=== PATIENT | male | born 1955 | race Hispanic/Latino ===

== ENCOUNTER → 2017-08-18 | Outpatient (CLI) | payer OTHER ==
[~2017-08-18] MED LIST: AMITRIPTYLINE H25 MG PO; AMLODIPINE BESY10 MG PO; ASPIR 8181 MG PO; ATORVASTATIN CA20 MG PO; FUROSEMIDE40 MG PO; GABAPENTIN100 MG PO; HYDRALAZINE HCL10 MG PO; LANTUS 3ML100 UNITS/ SC; LEVEMIR100 UNIT/1 SC; METOPROLOL SUCC50 MG PO; NIFEDIPINE ER30 M1 PO; OMEPRAZOLE40 MG PO; SERTRALINE HCL100 MG PO; TAMSULOSIN HCL0.4 MG PO; ZOFRAN ODT4 MG PO
[2017-08-22 08:11] LABS: HEMATOCRIT 28.6 % (38.2-49.6); HEMOGLOBIN 9.3 g/dL (14.0-18.0)
== END ==
LOC: NPA 09:00
PROVIDERS: ATTEND Internal Medicine
DX: Z02.89 Encounter for other administrative examinations (principal)
CPT/HCPCS: 36415; 85014; 85018

== ENCOUNTER → 2017-08-25 | Outpatient (CLI) | payer OTHER ==
[2017-08-25 17:09] LABS: BASOPHILS % 0.5 % (0.0-1.0); HEMATOCRIT 23.9 % (38.2-49.6); HEMOGLOBIN 7.9 g/dL (14.0-18.0); LYMPHOCYTES # (AUTO) 1.1 (1.0-3.2); LYMPHOCYTES % 26.4 % (18.0-39.1); MEAN CORPUSCULAR HEMOGLOBIN 29.5 pg (28-32); MEAN CORPUSCULAR HGB CONC 33.1 g/dL (31-35); MEAN CORPUSCULAR VOLUME 89.2 fL (81-99); MONOCYTES # (AUTO) 0.4 (0.2-0.8); MONOCYTES % 8.8 % (4.4-11.3); NEUTROPHILS # (AUTO) 2.5 (2.1-6.9); PLATELET COUNT 165 x10e3/uL (140-360); RED BLOOD COUNT 2.68 x10e6/uL (4.3-5.7); RED CELL DISTRIBUTION WIDTH 13.8 % (11.7-14.4)
== END ==
LOC: NPA 13:30
PROVIDERS: ATTEND Internal Medicine
DX: Z02.89 Encounter for other administrative examinations (principal)
CPT/HCPCS: 36415; 85025

== ENCOUNTER 2017-11-12 07:10 | Emergency (ER) | payer MEDICARE ==
[~2017-11-12] VITALS: Ht 170.2 cm; Wt 68.0 kg
--- OUTSIDE RECORDS SUMMARY | 2017-11-12 07:12 | XMS REPORT | Clinical Summary ---
Author Author [facility] Organization [facility] Address Unknown Phone Unavailable Care Team Providers Care Founder / Ceo Name Role Phone Zaid Lopes MD PCP Allergies Active Allergy Reactions Severity Noted Date Comments Sulfamethoxazole-Trimetho Hives 02/23/2016 prim Current Medications Prescription Sig. Disp. Refills Start End Date Status Date insulin GLARGINE (LANTUS) Inject 35 Units under the Active 100 unit/mL injection skin 2 (two) times a day. gabapentin (NEURONTIN) Take 400 mg by mouth 3 Active 400 MG capsule (three) times a day. tamsulosin (FLOMAX) 0.4 Take 0.4 mg by mouth Active mg capsule,extended daily. release 24hr metoprolol tartrate Take 100 mg by mouth 2 Active (LOPRESSOR) 100 MG tablet (two) times a day. 1 tablet in the morning and 1/2 tablet at night hydrALAZINE (APRESOLINE) Take 50 mg by mouth every Active 50 MG tablet 8 (eight) hours. amitriptyline (ELAVIL) 25 Take 25 mg by mouth Active MG tablet nightly. sertraline (ZOLOFT) 100 Take 100 mg by mouth Active MG tablet daily. furosemide (LASIX) 40 MG Take 40 mg by mouth 2 Active tablet (two) times a day. Active Problems Problem Noted Date Type 2 diabetes mellitus 02/23/2016 Social History Tobacco Use Types Packs/Day Years Used Date Never Smoker Smokeless Tobacco: Never Used Sex Assigned at Date Recorded Not on file Last Filed Vital Signs Not on file Plan of Treatment Health Maintenance Due Date Last Done Comments FOOT EXAM 1967 OPHTHALMOLOGY EXAM 1965 URINE MICROALBUMIN 1967 COLONOSCOPY 2007 INFLUENZA VACCINE 03/15/2017 ZOSTER VACCINE 2017 Results Not on fileafter 11/11/2016 Insurance Payer Benefit Subscriber ID Type Phone Address Plan / Group WELLCARE WELLCARE xxxxxxxx HMO MCR OPTUM TRANSPLANT MEDICARE OPTUM TXP xxxxxxxx Transplant MEDICARE MCR Home: [address] [place] [id number] BHAVESH,RAMO Transplant Self 1955 Home: [address] [facility] [place] [address]
[2017-11-12] MEDS ORDERED: ASPIRIN 81 MG CHEW TAB PO ONE (07:30)
[2017-11-12 07:34] LABS: BASOPHILS % 0.6 % (0.0-1.0); EOSINOPHILS % 0.7 % (0.0-6.0); HEMATOCRIT 35.9 % (38.2-49.6); HEMOGLOBIN 11.6 g/dL (14.0-18.0); LYMPHOCYTES # (AUTO) 0.9 (1.0-3.2); LYMPHOCYTES % 17.4 % (18.0-39.1); MEAN CORPUSCULAR HEMOGLOBIN 29.1 pg (28-32); MEAN CORPUSCULAR HGB CONC 32.3 g/dL (31-35); MEAN CORPUSCULAR VOLUME 90.2 fL (81-99); MONOCYTES # (AUTO) 0.3 (0.2-0.8); MONOCYTES % 4.7 % (4.4-11.3); NEUTROPHILS # (AUTO) 4.1 (2.1-6.9); NEUTROPHILS % 76.4 % (38.7-80.0); PLATELET COUNT 134 x10e3/uL (140-360); RED BLOOD COUNT 3.98 x10e6/uL (4.3-5.7); RED CELL DISTRIBUTION WIDTH 14.6 % (11.7-14.4)
[2017-11-12] MEDS ORDERED: TERAZOSIN HCL5 MG PO (07:41)
[2017-11-12] MEDS ORDERED: DIOVAN160 MG PO (07:41)
[2017-11-12] MEDS ORDERED: HYDRALAZINE HCL 20 MG/ML VIAL IV ONE ×2 (07:45→09:30)
[2017-11-12 07:47] LABS: INR 1.06
[2017-11-12 07:48] LABS: PARTIAL THROMBOPLASTIN TIME 32.5 seconds (23.8-35.5)
[2017-11-12 07:55] LABS: ALBUMIN 3.7 g/dL (3.5-5.0); ALBUMIN/GLOBULIN RATIO 1.3 (0.8-2.0); ANION GAP 17.4 mmol/L (8-16); CALCIUM 8.5 mg/dL (8.4-10.2); CREATININE, SERUM 5.79 mg/dL (0.72-1.25); POTASSIUM 4.4 mmol/L (3.5-5.1)
[2017-11-12 07:57] LABS: CREATINE KINASE MB 1.7 ng/mL (0-5.0)
[2017-11-12] MEDS ORDERED: NITROGLYCERIN 2% OINT 1 GM PKT TOP ONE (08:00)
--- NOTE | 2017-11-12 08:30 | Diagnostic Imaging Report ---
EXAMINATION: CHEST SINGLE (PORTABLE) INDICATION: \S\CP \S\Y COMPARISON: None FINDINGS: AP view TUBES and LINES: None. LUNGS: Lungs are well inflated. Lungs are clear. There is no evidence of pneumonia or pulmonary edema. PLEURA: No pleural effusion or pneumothorax. HEART AND MEDIASTINUM: The cardiomediastinal silhouette is unremarkable. BONES AND SOFT TISSUES: No acute osseous lesion. Vascular stent projects over the right subclavian/proximal brachial region. UPPER ABDOMEN: No free air under the diaphragm. IMPRESSION: No acute thoracic abnormality. Signed by: DR. Akhil Medina MD on 11/12/2017 8:26 AM
[2017-11-12] MEDS ORDERED: CLONIDINE HCL 0.2 MG TAB ONE (09:32)
[2017-11-12] MEDS ORDERED: CLONIDINE HCL 0.2 MG TAB PO ONE (10:00)
== END 2017-11-12 11:03 | disposition home or self-care (01) ==
LOC: ER 07:10
DX: R07.89 Other chest pain (principal); I12.0 Hypertensive chronic kidney disease with stage 5 chronic kidney disease or end stage renal disease; N18.6 End stage renal disease; Z99.2 Dependence on renal dialysis
CPT/HCPCS: 36415; 71045; 80053; 82550; 82553; 82948; 84484; 85025; 85610; 85730; 93005 ×2; 99284; J0360

== ENCOUNTER 2017-11-30 06:44 | Inpatient (IN) | payer MEDICARE ==
[2017-11-30] VITALS (7 sets, daily range): BP systolic 156–229; BP diastolic 75–102
[~2017-11-30] VITALS: Ht 157.5 cm; Wt 64.1 kg
[~2017-11-30 06:44] MED LIST changes: +DIOVAN160 MG PO; +TERAZOSIN HCL5 MG PO
--- OUTSIDE RECORDS SUMMARY | 2017-11-30 06:47 | XMS REPORT | Clinical Summary ---
Author Author [facility] Organization [facility] Address Unknown Phone Unavailable Care Team Providers Care Move Coordinator Name Role Phone Zaid Lopes MD PCP [...] EXAM 1967 URINE MICROALBUMIN 1967 COLONOSCOPY 2007 ZOSTER VACCINE 2017 INFLUENZA VACCINE 03/15/2018 Results Not on fileafter 11/29/2016 Insurance Payer Benefit Subscriber ID Type Phone Address Plan / Group WELLCARE WELLCARE xxxxxxxx HMO MCR OPTUM TRANSPLANT MEDICARE OPTUM TXP xxxxxxxx Transplant MEDICARE MCR Home: [address] [place] [phone] BHAVESH,RAMO Transplant Self 1955 Home: [address] [place] [address]
--- OUTSIDE RECORDS SUMMARY | 2017-11-30 06:47 | XMS REPORT | Continuity of Care Document ---
Author Author [facility] Organization [facility] Address [address] [place] [address] Phone Unavailable Care Team Providers Care Blankmaker Name Role Phone HAWA EVANS MD PCP Insurance Providers Guarantor Ramo Young Jr Address [address] [place] [address] Email PTDECLINED Payer Wellcare Medicare Advantage Policy Number [id number] Subscriber's Name Ramo Young Jr Relationship 18 Self / Same As Patient Advance Directives Directive Response Recorded Date/Time Does the patient have an advance directive? No 11/12/17 8:18am If yes, is advance directive on file with [facility]? No 11/12/17 8:18am If not on file with [facility] will patient provide a copy? No 11/12/17 8:18am Do you have a Directive to Physician? No 11/12/17 7:22am Do you have a Medical Power of Travel Accommodations Rater? No 11/12/17 7:22am Do you have an out of hospital Do Not Resuscitate Order? No 11/12/17 7:22am Do you have any special needs we should be aware of? No 11/12/17 7:22am Do you have a support person here with you today? Yes 11/12/17 7:22am Did patient receive Notice of Privacy Practices? Yes 11/12/17 7:22am Did patient receive patient rights and responsibilities? Yes 11/12/17 7:22am Problems No problem information available. Medications Current Home Medications Medication Dose Units Route Directions Days Qty Instructions Start Date Amitriptyline Hcl 25 Mg Tablet 25 Mg Oral Bedtime 30 Tab Amlodipine Besylate 10 Mg Tablet 10 Mg Oral Daily 30 Tab Aspirin (Aspir 81) 81 Mg Tablet.dr 81 Mg Oral Daily Atorvastatin Calcium 20 Mg Tablet 20 Mg Oral Bedtime 30 Tab Furosemide 40 Mg Tablet 40 Mg Oral Every 12 Hours 30 Tab Hydralazine Hcl 10 Mg Tablet 50 Mg Oral Twice A Day 30 Tab Insulin Detemir (Levemir) 100 Unit/1 Ml Vial 5 Unit Subcutaneously Before Meals Insulin Glargine (Lantus 3ML Pen) 100 Units/1 Ml Inj 32 Subcutaneously Every 12 Hours Metoprolol Succinate 50 Mg Tab.er.24h 100 Mg Oral Every 12 Hours Nifedipine (Nifedipine Er) 30 Mg Tab.er.24 90 Mg Oral Daily Ondansetron (Zofran Odt) 4 Mg Tab.rapdis 4 Mg Oral Every 6 Hours for Nausea Sertraline Hcl 100 Mg Tablet 100 Mg Oral Daily Tamsulosin Hcl 0.4 Mg Cap.er.24h 0.4 Mg Oral Daily Terazosin Hcl 5 Mg Capsule 5 Mg Oral Daily 30 Cap Valsartan (Diovan) 160 Mg Tab 320 Mg Oral Daily 60 Tab Past Home Medications Medication Directions Ordered Status Gabapentin 100 Mg Capsule, 100 Mg Oral Three Times A Day Discontinued Omeprazole 40 Mg Capsule.dr, 40 Mg Oral Daily Discontinued Social History No social history information available. Hospital Discharge Instructions No hospital discharge instruction information available. Plan of Care Discharge Date 11/12/17 11:03am Disposition HOME, SELF-CARE Condition at Discharge Improved Forms Provided Work/School Excuse Prescriptions See Medication Section Additional Instructions/Education GO TO DIALYSIS TODAY FOLLOW UP WITH PCP NEEDED Functional Status No functional status information available. Allergies, Adverse Reactions, Alerts Allergen Type Severity Reaction Status Last Updated Sulfamethoxazole Allergy Intermediate GENERALIZED BLOTCHING Active Trimethoprim Allergy Intermediate GENERALIZED BLOTCHING Active 11/12/17 Immunizations No immunization information available. Vital Signs Acute Vital Signs Vital Response Date/Time Pulse Pulse Rate (adult) 75 bpm (60 - 90) 02/10/2017 3:31pm Respiratory Rate 18 bpm (12 - 24) 02/10/2017 3:31pm Blood Pressure 201/98 mm Hg 02/10/2017 3:31pm Height 5 ft 7 in 11/12/2017 7:10am Weight 150 lb 11/12/2017 7:10am Body Mass Index 23.5 kg/m^2 11/12/2017 7:10am Results Laboratory Results Test Name Result Units Flags Reference Collection Date/Time Result Date/ Time Comments Urine Color YELLOW YELLOW 02/10/2017 12:45pm 02/10/2017 1:23pm Urine Clarity SL CLOUDY H CLEAR 02/10/2017 12:45pm 02/10/2017 1:23pm Urine Specific [place] 1.010 1.010-1.025 02/10/2017 12:45pm 2016 1:23pm Urine pH 7 5 - 7 02/10/2017 12:45pm 02/10/2017 1:23pm Urine Leukocyte Esterase 1+ H NEGATIVE 02/10/2017 12:45pm 02/10/2017 1 :23pm Urine Nitrite NEGATIVE NEGATIVE 02/10/2017 12:45pm 02/10/2017 1:23pm Urine Protein 3+ H NEGATIVE 02/10/2017 12:45pm 02/10/2017 1:23pm Urine Glucose (UA) 1+ H NEGATIVE 02/10/2017 12:45pm 02/10/2017 1:23pm Urine Ketones NEGATIVE NEGATIVE 02/10/2017 12:45pm 02/10/2017 1:23pm Urine Urobilinogen 0.2 mg/dL 0.2 - 1 02/10/2017 12:45pm 02/10/2017 1: 23pm Urine Bilirubin NEGATIVE NEGATIVE 02/10/2017 12:45pm 02/10/2017 1: 23pm Urine Blood 3+ H NEGATIVE 02/10/2017 12:45pm 02/10/2017 1:23pm Urine WBC 11-20 /HPF H 0-5 02/10/2017 12:45pm 02/10/2017 2:02pm Urine RBC 11-20 /HPF H 0-5 02/10/2017 12:45pm 02/10/2017 2:02pm Urine Bacteria FEW /HPF NONE 02/10/2017 12:45pm 02/10/2017 2:02pm Urine Epithelial Cells FEW /LPF NONE 02/10/2017 12:45pm 02/10/2017 2: 02pm B-Type Natriuretic Peptide 291.2 pg/mL H 0-100 02/10/2017 12:00pm 2016 12:35pm White Blood Count 5.34 x10e3/uL 4.8-10.8 11/12/2017 7:11/12/2017 7 :35am Red Blood Count 3.98 x10e6/uL L 4.3-5.7 11/12/2017 7:11/12/2017 7: 35am Hemoglobin 11.6 g/dL L 14.0-18.0 11/12/2017 7:11/12/2017 7:35am Hematocrit 35.9 % L 38.2-49.6 11/12/2017 7:11/12/2017 7:35am Mean Corpuscular Volume 90.2 fL 81-99 11/12/2017 7:11/12/2017 7: 35am Mean Corpuscular Hemoglobin 29.1 pg 28-32 11/12/2017 7:11/12/2017 7:35am Mean Corpuscular Hemoglobin Concent 32.3 g/dL 31-35 11/12/2017 7:11/12/2017 7:35am Red Cell Distribution Width 14.6 % H 11.7-14.4 11/12/2017 7:2017 7:35am Platelet Count 134 x10e3/uL L 140-360 11/12/2017 7:11/12/2017 7: 35am Neutrophils (%) (Auto) 76.4 % 38.7-80.0 11/12/2017 7:11/12/2017 7: 35am Lymphocytes (%) (Auto) 17.4 % L 18.0-39.1 11/12/2017 7:11/12/2017 7 :35am Monocytes (%) (Auto) 4.7 % 4.4-11.3 11/12/2017 7:11/12/2017 7: 35am Eosinophils (%) (Auto) 0.7 % 0.0-6.0 11/12/2017 7:11/12/2017 7: 35am Basophils (%) (Auto) 0.6 % 0.0-1.0 11/12/2017 7:11/12/2017 7:35am IM GRANULOCYTES % 0.2 % 0.0-1.0 11/12/2017 7:11/12/2017 7:35am Neutrophils # (Auto) 4.1 2.1-6.9 11/12/2017 7:11/12/2017 7:35am Lymphocytes # (Auto) 0.9 L 1.0-3.2 11/12/2017 7:11/12/2017 7: 35am Monocytes # (Auto) 0.3 0.2-0.8 11/12/2017 7:11/12/2017 7:35am Eosinophils # (Auto) 0.0 0.0-0.4 11/12/2017 7:11/12/2017 7:35am Basophils # (Auto) 0.0 0.0-0.1 11/12/2017 7:11/12/2017 7:35am Absolute Immature Granulocyte (auto 0.01 x10e3/uL 0-0.1 11/12/2017 7: 11/12/2017 7:35am Prothrombin Time 13.0 seconds 11.9-14.5 11/12/2017 7:11/12/2017 7: 52am Prothromb Time International Ratio 1.06 11/12/2017 7:2017 7:52am Oral Anticoagulant Therapy INR Values: 1. Low Intensity Therapy 1.5 - 2.0 2. Moderate Intensity Therapy 2.0 - 3.0 3. High Intensity Therapy(1) 2.5 - 3.5 4. High Intensity Therapy(2) 3.0 - 4.0 5. Panic Value INR > 5.0 Activated Partial Thromboplast Time 32.5 seconds 23.8-35.5 11/12/2017 7: 11/12/2017 7:52am Sodium Level 139 mmol/L 136-145 11/12/2017 7:11/12/2017 7:58am Potassium Level 4.4 mmol/L 3.5-5.1 11/12/2017 7:11/12/2017 7:58am Chloride Level 97 mmol/L L 98-107 11/12/2017 7:11/12/2017 7:58am Carbon Dioxide Level 29 mmol/L 22-11/12/2017 7:11/12/2017 7: 58am Anion Gap 17.4 mmol/L H 8-16 11/12/2017 7:11/12/2017 7:58am Blood Urea Nitrogen 38 mg/dL H 7-11/12/2017 7:11/12/2017 7:58am Creatinine 5.79 mg/dL H 0.72-1.25 11/12/2017 7:11/12/2017 7:58am BUN/Creatinine Ratio 7 611/12/2017 7:11/12/2017 7:58am Estimat Glomerular Filtration Rate 10 ML/MIN L 6011/12/2017 7: 7:58am Ranges were taken from the National Kidney Disease Education Program and the National Kidney Foundation literature. Reference ranges: 60 or greater: Normal 16-59 (for 3 consecutive months): Chronic kidney disease 15 or less: Kidney failure Glucose Level 116 mg/dL 74-118 11/12/2017 7:11/12/2017 7:58am Calcium Level 8.5 mg/dL 8.4-10.2 11/12/2017 7:11/12/2017 7:58am Bedside Glucose 102 mg/dL 70-120 11/12/2017 7:11/12/2017 8:04am Meter ID: [id number] Total Bilirubin 0.5 mg/dL 0.2-1.2 11/12/2017 7:11/12/2017 7:58am Aspartate Amino Transf (AST/SGOT) 12 IU/L 5-34 11/12/2017 7:2017 7:58am Alanine Aminotransferase (ALT/SGPT) 9 IU/L 0-55 11/12/2017 7:11/12 7:58am Total Protein 6.5 g/dL 6.5-8.1 11/12/2017 7:11/12/2017 7:58am Albumin 3.7 g/dL 3.5-5.0 11/12/2017 7:11/12/2017 7:58am Globulin 2.8 g/dL 2.3-3.5 11/12/2017 7:25am 11/12/2017 7:58am Albumin/Globulin Ratio 1.3 0.8-2.0 11/12/2017 7:25am 11/12/2017 7: 58am Alkaline Phosphatase 97 IU/L 40-150 11/12/2017 7:25am 11/12/2017 7: 58am Creatine Kinase 52 IU/L 30-200 11/12/2017 7:25am 11/12/2017 7:58am Creatine Kinase MB 1.70 ng/mL 0-5.0 11/12/2017 7:25am 11/12/2017 7: 58am Troponin I 0.032 ng/mL 0-0.300 11/12/2017 9:35am 11/12/2017 10:18am Procedures No procedure information available. Encounters Encounter Location Arrival/Admit Date Discharge/Depart Date Attending Provider Departed Emergency Room [facility] 11/12/17 7:10am 11:03am HEIDY LEE MD Registered Referred [facility] 08/25/17 11:51am JANET ARCE MD Registered Referred [facility] 08/18/17 11:50am JANET ARCE MD Departed Emergency Room [facility] 02/10/17 11:08am 02/10 3:42pm CRAIG OROSCO MD
--- OUTSIDE RECORDS SUMMARY | 2017-11-30 06:47 | XMS REPORT ---
Author [facility] Address Unknown Phone Unavailable Care Team Providers Care Program Director Substance Abuse Name Role Phone HEIDY LEE Unavailable Unavailable Problems This patient has no known problems. Allergies, Adverse Reactions, Alerts This patient has no known allergies or adverse reactions. Medications This patient has no known medications. Results Test Description Test Time Test Comments Text Results Atomic Results Result Comments CHEST SINGLE (PORTABLE) [address] [address] Patient Name: ALEXANDREA OSPINA JR MR #: [id number] : 1955 Age/Sex: 62/M Req #: [id number] Adm Physician: Ordered by: HEIDY LEE MD Report #: [id number] Location: ER Room/Bed: Procedure: [id number] DX/CHEST SINGLE (PORTABLE) Exam Date: Exam Time: REPORT STATUS: Signed EXAMINATION: CHEST SINGLE ( PORTABLE) INDICATION: COMPARISON: None FINDINGS: AP view TUBES and LINES: None. LUNGS: Lungs are well inflated. Lungs are clear. There is no evidence of pneumonia or pulmonary edema. PLEURA: No pleural effusion or pneumothorax. HEART AND MEDIASTINUM: The cardiomediastinal silhouette is unremarkable. BONES AND SOFT TISSUES: No acute osseous lesion. Vascular stent projects over the right subclavian/proximal brachial region. UPPER ABDOMEN: No free air under the diaphragm. IMPRESSION: No acute thoracic abnormality. Signed by: DR. Akhil Camacho MD on 11/12/2017 8:26 AM Dictated By: AKHIL CAMACHO MD 5 Transcribed By: BERT on 11/12/17825 COPY TO: HEIDY LEE MD
[2017-11-30] MEDS ORDERED: NIFEDIPINE 10 MG CAP PO ONE (07:30)
[2017-11-30] MEDS ORDERED: ASPIRIN 81 MG CHEW TAB PO ONE (07:30)
[2017-11-30] MEDS ORDERED: ONDANSETRON HCL INJ 2 MG/ML VIAL IV STA (07:49)
[2017-11-30] MEDS ORDERED: HYDROMORPHONE 1MG/1ML INJ IV STA (07:53)
[2017-11-30 08:01] LABS: BASOPHILS % 0.2 % (0.0-1.0); EOSINOPHILS % 0.3 % (0.0-6.0); HEMATOCRIT 31.7 % (38.2-49.6); HEMOGLOBIN 10.5 g/dL (14.0-18.0); LYMPHOCYTES # (AUTO) 1.3 (1.0-3.2); LYMPHOCYTES % 11.5 % (18.0-39.1); MEAN CORPUSCULAR HEMOGLOBIN 29.1 pg (28-32); MEAN CORPUSCULAR HGB CONC 33.1 g/dL (31-35); MEAN CORPUSCULAR VOLUME 87.8 fL (81-99); MONOCYTES # (AUTO) 0.3 (0.2-0.8); NEUTROPHILS # (AUTO) 9.2 (2.1-6.9); NEUTROPHILS % 84.6 % (38.7-80.0); PLATELET COUNT 146 x10e3/uL (140-360); RED BLOOD COUNT 3.61 x10e6/uL (4.3-5.7)
[2017-11-30 08:09] LABS: INR 1.09; PROTHROMBIN TIME 13.3 seconds (11.9-14.5)
[2017-11-30 08:10] LABS: PARTIAL THROMBOPLASTIN TIME 33.9 seconds (23.8-35.5)
[2017-11-30 08:17] LABS: ALBUMIN/GLOBULIN RATIO 1.1 (0.8-2.0); ANION GAP 19.8 mmol/L (8-16); CALCIUM 9.1 mg/dL (8.4-10.2); CREATININE, SERUM 4.93 mg/dL (0.72-1.25); POTASSIUM 4.8 mmol/L (3.5-5.1)
[2017-11-30 08:23] LABS: CREATINE KINASE MB 2.2 ng/mL (0-5.0)
--- NOTE | 2017-11-30 08:52 | Diagnostic Imaging Report ---
PROCEDURE: A single AP view of the chest. COMPARISON: Portable chest 11/12/2017. INDICATIONS: CHEST PAIN FINDINGS: Lines/tubes: None. Lungs: The lungs are well inflated and clear. There is no evidence of pneumonia or pulmonary edema. Pleura: There is no pleural effusion or pneumothorax. Heart and mediastinum: The heart and the mediastinum are unremarkable. Bones: No acute bony abnormality. Soft tissues: Vascular stent projects over the right axilla. IMPRESSION: No acute radiographic abnormality. Dictated by: Jostin Lizarraga M.D. on 11/30/2017 at 8:53 Electronically approved by: Jostin Lizarraga M.D. on 11/30/2017 at 8:53
[2017-11-30] MEDS ORDERED: NITROGLYCERIN 0.4 MG SUBL SL PRN (09:30)
[2017-11-30] MEDS ORDERED: SODIUM CHLORIDE FLUSH 10 ML SYR INJ PRN (09:30)
[2017-11-30] MEDS ORDERED: IOPAMIDOL 370 MG/ML 200 ML INFUS..BTL INJ ONE (10:12)
[2017-11-30] MEDS ORDERED: SODIUM CHLORIDE 0.9% 50ML 50 ML ONE (10:12)
[2017-11-30] MEDS ORDERED: HYDRALAZINE HCL 20 MG/ML VIAL IV PRN (10:15)
--- NOTE | 2017-11-30 10:19 | Diagnostic Imaging Report ---
PROCEDURE: CT ANGIOGRAPHY CHEST WITHOUT AND WITH CONTRAST COMPARISON: None. INDICATIONS: CHEST PAIN SHOOTING TO MID BACK, DISSECTION TECHNIQUE: Multidetector CT scanning of the chest was performed from the level of the thoracic inlet to the upper abdomen before and after the intravenous administration of 100cc of Isovue 370. The images were obtained in the arterial phase. Coronal and sagittal multiplanar reformations were obtained. FINDINGS: Lungs: The lungs are well inflated and clear. No filling defects are identified within the pulmonary arteries. Airways: The major airways are clear. Pleura: Small left pleural effusion. No pneumothorax. Heart and mediastinum: The heart and the mediastinum are normal. Minimal atherosclerotic calcification of the coronary arteries. No dissection flap is visualized in the thoracic aorta. No contour irregularity. Abdomen: The visualized parts of the upper abdomen are unremarkable. Bones: Healing fractures of the left lateral third, fourth, fifth, sixth, seventh, eighth, and ninth ribs are noted. Minimal degenerative changes of the thoracic spine. Soft tissues: The soft tissues are unremarkable. IMPRESSION: No evidence of aortic dissection. Multiple healing left lateral rib fractures. Small left pleural effusion. Dictated by: Jostin Lizarraga M.D. on 11/30/2017 at 10:20 Electronically approved by: Jostin Lizarraga M.D. on 11/30/2017 at 10:20
--- OUTSIDE RECORDS SUMMARY | 2017-11-30 10:22 | XMS REPORT | Clinical Summary ---
Author Author [facility] Organization [facility] Address Unknown Phone Unavailable Care Team Providers Care Director Of Product Design Name Role Phone Zaid Lopes MD PCP [...] [address] [place] [id number] BHAVESH,RAMO Transplant Self 1955 Home: [address] [place] [address]
[2017-11-30] MEDS: FAMOTIDINE 20 MG TAB PO SCH ×2 (10:23→21:21)
[2017-11-30] MEDS ORDERED: DEXTROSE 50% SYRINGE 50 ML IV PRN (10:30)
[2017-11-30] MEDS: INSULIN DETEMIR 100 UNIT/ML PEN SQ SCH (13:00)
[2017-11-30] MEDS ORDERED: NOVOLIN N100 UNIT/1 SQ (13:13)
[2017-11-30] MEDS: ONDANSETRON HCL INJ 2 MG/ML VIAL IV PRN ×2 (13:29→19:26)
[2017-11-30] MEDS: INSULIN REGULAR, HUMAN 100 UNIT/1 ML 3ML VIAL SQ SCH ×3 (13:29→20:33)
--- NOTE | 2017-11-30 14:12 | Consultation ---
DATE OF CONSULTATION: November 30, 2017 CARDIOLOGY CONSULTATION REASON FOR CONSULTATION: Chest pain. REQUESTING PHYSICIAN: Dr. Jostin Sapp HPI: This is a 62-year-old male that presented with neck pain, vomiting and elevated high blood pressure. According to the patient, he started having occipital headache that radiated to his back that comes and goes. He stated that he took all his blood pressure medications this morning, and he vomited all the medications. The back pain continued, and he came into the emergency room for evaluation. He has had a history of end-stage renal disease on dialysis and uncontrolled high blood pressure. According to the also at the bedside, the PCP has done a lot of changes to his medications, and his blood pressure still stays high. He denied any chest pain, any palpitations, any dizziness or diaphoresis. Troponin times [address] negative[address] with no ST abnormalities. BNP 1793. He got a chest x-ray done that showed no acute radiographic abnormalities. He also had a CT chest done that showed multiple healing left lateral rib fractures. PAST MEDICAL HISTORY 1. Uncontrolled high blood pressure. 2. Diabetes. 3. Hyperlipidemia. 4. Anxiety. 5. End-stage renal disease on dialysis. 6. Anemia of chronic disease. 7. CVA times 4. PAST SURGICAL HISTORY 1. Dialysis graft on the right arm. 2. Left foot graft in the past. FAMILY HISTORY: Positive for diabetes and hypertension. SOCIAL HISTORY: No smoking. No drinking. Lives at home with the . MEDICATIONS: He is on Norvasc, atorvastatin, Lasix, hydralazine, metoprolol, nifedipine, Thorazine, Diovan, Zoloft, insulin, aspirin and Zofran. ALLERGIES: HE IS ALLERGIC TO SULFA MEDICATION. REVIEW OF SYSTEMS: Negative except those mentioned above. PHYSICAL EXAMINATION GENERAL: He is alert, awake and oriented times 3, but very lethargic. VITALS: Temperature 97, heart rate 82, blood pressure 182/83, respirations 18, oxygen saturation 99% on 2 liters nasal cannula. HEENT: Mucous membranes moist. NECK: Supple. LUNGS: Bilaterally clear to auscultation. CARDIOVASCULAR: S1 and S2 present. ABDOMEN: Soft. EXTREMITIES: No edema. NEUROLOGIC: Intact. LABORATORY DATA: Sodium 144, potassium 4.8, chloride 99, CO2 28, BUN 35, creatinine 4.98. Glucose 263. White blood cells 10.8, hemoglobin 10.5, hematocrit 31.7, platelets 146. PT 13.3, PTT 33.9, INR 1.09. IMPRESSION 1. Uncontrolled hypertension. 2. Neck and back pain. 3. Diabetes. 4. History of cerebrovascular accident. ASSESSMENT AND PLAN: Will go ahead and get serial cardiac enzymes. Get an echo to assess the LV and valve function. BNP could be elevated due to renal. He is on dialysis Tuesday, and Tuesday. Possible cardiac stress test when stable. The neck pain and occipital headache could be related to the uncontrolled high blood pressure. Will resume his home blood pressure medications. Further cardiac workup pending clinical course. Thank you for this consultation. Dictated by Drake Mares NP. Job#: [id number]
[2017-11-30] MEDS: FUROSEMIDE 40 MG TAB PO SCH (14:43)
[2017-11-30] MEDS: METOPROLOL SUCCINATE 50 MG TAB XL PO SCH (14:43)
[2017-11-30] MEDS: TERAZOSIN HCL 5 MG CAP PO SCH ×2 (14:43→14:45)
[2017-11-30] MEDS: VALSARTAN 160 MG TAB PO SCH ×2 (14:43→14:45)
[2017-11-30] MEDS: NIFEDIPINE CR 30 MG TAB PO SCH (14:45)
[2017-11-30] MEDS: HYDRALAZINE HCL 20 MG/ML VIAL IV PRN ×2 (15:57→20:36)
[2017-11-30] MEDS: MORPHINE SULFATE 2 MG/ML SYR IV PRN ×3 (16:04→23:19)
[2017-11-30] MEDS: NPH, HUMAN INSULIN ISOPHANE 100 UNIT/1 ML 3ML VIAL SQ SCH (16:30)
[2017-11-30] MEDS ORDERED: INSULIN DETEMIR 5 UNIT SC SCH (16:30)
[2017-11-30] MEDS ORDERED: HYDRALAZINE HCL 10 MG TAB PO SCH (17:00)
[2017-11-30] MEDS ORDERED: HYDRALAZINE HCL 20 MG/ML VIAL IV ONE (18:15)
[2017-11-30] MEDS: AMITRIPTYLINE HCL 25 MG TAB PO SCH (20:34)
[2017-11-30] MEDS: ATORVASTATIN 20 MG TAB PO SCH (20:34)
[2017-12-01] VITALS (8 sets, daily range): BP systolic 180–226; BP diastolic 81–101
[2017-12-01] MEDS: METOPROLOL SUCCINATE 50 MG TAB XL PO SCH ×2 (00:30→12:52)
[2017-12-01] MEDS: FUROSEMIDE 40 MG TAB PO SCH ×2 (00:30→13:00)
[2017-12-01] MEDS: ONDANSETRON HCL INJ 2 MG/ML VIAL IV PRN ×2 (00:40→04:54)
[2017-12-01] MEDS: INSULIN DETEMIR 100 UNIT/ML PEN SQ SCH ×2 (00:59→12:36)
[2017-12-01] MEDS: HYDRALAZINE HCL 20 MG/ML VIAL IV PRN ×2 (04:53→16:46)
[2017-12-01] MEDS: MORPHINE SULFATE 2 MG/ML SYR IV PRN ×3 (04:54→21:19)
[2017-12-01] MEDS ORDERED: LABETALOL HCL 5 MG/ML 20ML VIAL IV ONE (06:23)
[2017-12-01 07:10] LABS: BASOPHILS % 0.2 % (0.0-1.0); HEMATOCRIT 29.1 % (38.2-49.6); HEMOGLOBIN 9.5 g/dL (14.0-18.0); LYMPHOCYTES % 16.1 % (18.0-39.1); MEAN CORPUSCULAR HEMOGLOBIN 28.7 pg (28-32); MEAN CORPUSCULAR HGB CONC 32.6 g/dL (31-35); MEAN CORPUSCULAR VOLUME 87.9 fL (81-99); MONOCYTES # (AUTO) 0.4 (0.2-0.8); MONOCYTES % 6.4 % (4.4-11.3); NEUTROPHILS # (AUTO) 4.7 (2.1-6.9); NEUTROPHILS % 76.3 % (38.7-80.0); PLATELET COUNT 141 x10e3/uL (140-360); RED BLOOD COUNT 3.31 x10e6/uL (4.3-5.7); RED CELL DISTRIBUTION WIDTH 14.5 % (11.7-14.4)
[2017-12-01] MEDS: INSULIN REGULAR, HUMAN 100 UNIT/1 ML 3ML VIAL SQ SCH ×4 (07:30→21:00)
[2017-12-01] MEDS: NPH, HUMAN INSULIN ISOPHANE 100 UNIT/1 ML 3ML VIAL SQ SCH (07:30)
[2017-12-01 07:42] LABS: CREATINE KINASE MB 1.5 ng/mL (0-5.0)
[2017-12-01 07:48] LABS: ANION GAP 21.2 mmol/L (8-16); CALCIUM 8.7 mg/dL (8.4-10.2); CHOL/HDL RATIO 3.1 (3.9-4.7); CREATININE, SERUM 6.55 mg/dL (0.72-1.25); POTASSIUM 5.2 mmol/L (3.5-5.1)
[2017-12-01] MEDS: TERAZOSIN HCL 5 MG CAP PO SCH (08:16)
[2017-12-01] MEDS: FAMOTIDINE 20 MG TAB PO SCH ×2 (08:16→21:19)
[2017-12-01] MEDS: VALSARTAN 160 MG TAB PO SCH (08:16)
[2017-12-01] MEDS: ASPIRIN 81 MG ENTERIC COATED PO SCH (08:16)
[2017-12-01] MEDS: SERTRALINE HCL 100 MG TAB PO SCH (08:16)
[2017-12-01] MEDS: TAMSULOSIN HCL 0.4 MG CAP PO SCH (08:16)
[2017-12-01] MEDS: NIFEDIPINE CR 30 MG TAB PO SCH ×2 (08:16→17:00)
[2017-12-01] MEDS ORDERED: REGADENOSON 0.4 MG/5 ML SYR IV ONE (08:46)
[2017-12-01] MEDS ORDERED: ASPIRIN 81 MG CHEW TAB PO SCH (09:00)
[2017-12-01] MEDS ORDERED: AMLODIPINE BESYLATE 10 MG TAB PO SCH (09:00)
[2017-12-01] MEDS ORDERED: HYDRALAZINE HCL 25 MG TAB PO SCH (09:00)
[2017-12-01] MEDS: ONDANSETRON HCL 4 MG ORAL DISINTEGRATING TAB PO PRN ×2 (12:49→21:19)
[2017-12-01] MEDS ORDERED: MANNITOL 25% 12.5GM/50 ML VIAL IV PRN (13:45)
[2017-12-01] MEDS ORDERED: SODIUM CHLORIDE 0.9% 1000ML 2,000 ML IV PRN (13:45)
[2017-12-01] MEDS ORDERED: SODIUM CHLORIDE 0.9% 250ML 500 ML IV PRN (13:45)
[2017-12-01] MEDS ORDERED: ALBUMIN HUMAN 12.5GM / 50ML IV PRN (13:45)
--- NOTE | 2017-12-01 14:34 | Consultation ---
DATE OF CONSULTATION: December 01, 2017 NEPHROLOGY CONSULTATION REASON FOR CONSULT: End-stage renal disease. This is a 62-year-old male who is known to our service as he gets dialysis as an outpatient. Known to have multiple medical problems, including hypertension, diabetes, dyslipidemia, and CHF along with anxiety and history of recurrent CVAs and TIAs, anemia of chronic disease, and end-stage renal disease, on hemodialysis every Tuesday, and Tuesday at [facility]. He basically comes in complaining of headache and neck pain that is radiating to the midback, and the scale of the pain is 7/10 along with nausea along with bioccipital headaches, pulsating in nature. He recently adjusted blood pressure medicines given his blood pressure has been going high as an outpatient. The patient is still having this chest pressure and pain radiating to the back. He came in for further evaluation. We are consulted to manage dialysis as an inpatient. His blood pressure was high upon admission. REVIEW OF SYSTEMS: Negative otherwise. PAST MEDICAL HISTORY: As mentioned above. PAST SURGICAL HISTORY: Status post AV graft for dialysis. FAMILY HISTORY: Positive for hypertension and diabetes. SOCIAL HISTORY: Denies smoking, alcohol or IV drug abuse. Lives with the . ALLERGIES: BACTRIM. PHYSICAL EXAMINATION VITALS: Today, vital signs include a blood pressure of 188/81, his temperature 97.4, and his heart rate is 80. GENERAL: No acute distress. HEENT: No adenopathy. HEART: Regular rate and rhythm. LUNGS: Good air entry. ABDOMEN: Soft and nontender. EXTREMITIES: Trace edema. LABS: His last hemoglobin was 9.5. His potassium was 5.2, BUN 54, creatinine 6.5. Troponin is 0.042. His BNP is 1793. He got a CT of his chest given he is having chest pain radiating to the midback. It shows aortic dissection. There is no aortic dissection per report. ASSESSMENT AND PLAN 1. End-stage renal disease, on hemodialysis every Tuesday, and Tuesday: At present, the patient will continue per schedule. Order has been given for dialysis today. 2. Electrolytes: Low potassium. Low potassium diet. 3. Hypertension: We will increase his hydralazine and Procardia. We will try to change , and reassess his blood pressure post hemodialysis. 4. Congestive heart failure: Fluids as tolerated. 5. Anemia of chronic disease: Will add Epogen if the patient stays in the hospital and hemoglobin drops below 10. 6. Diabetes: Monitor blood sugar and insulin. 7. Status post cerebrovascular accident and status post rehab. 8. Chest pain/neck pain/headache: Suspect this is all related to his increase in his blood pressure and being uncontrolled. Blood pressure medicine has been titrated up. We will monitor and reassess post hemodialysis and ultrafiltration. Monitor the patient clinically. Thank you for the consult. We will update the primary team for further recommendations. Job#: [id number] [facility]
[2017-12-01] MEDS ORDERED: CLONIDINE HCL 0.1 MG TAB PO ONE (16:45)
[2017-12-01] MEDS ORDERED: CLONIDINE HCL 0.2 MG TAB PO ONE (17:00)
[2017-12-01] MEDS ORDERED: LABETALOL HCL 5 MG/ML 20ML VIAL IV STA ×2 (17:32→19:15)
[2017-12-01] MEDS ORDERED: TRAMADOL HCL 50 MG TAB PO PRN (18:15)
[2017-12-01] MEDS ORDERED: IBUPROFEN 200 MG TAB PO PRN (18:15)
[2017-12-01] MEDS ORDERED: ACETAMINOPHEN 325 MG TAB PO PRN (18:15)
[2017-12-01] MEDS: HYDRALAZINE HCL 25 MG TAB PO SCH ×2 (19:03→21:19)
[2017-12-01] MEDS: ATORVASTATIN 20 MG TAB PO SCH (21:19)
[2017-12-01] MEDS: AMITRIPTYLINE HCL 25 MG TAB PO SCH (21:19)
[2017-12-02] VITALS (41 sets, daily range): BP systolic 113–212; BP diastolic 60–98
[2017-12-02] MEDS: FUROSEMIDE 40 MG TAB PO SCH ×3 (00:48→23:57)
[2017-12-02] MEDS: HYDRALAZINE HCL 20 MG/ML VIAL IV PRN ×3 (00:49→08:34)
[2017-12-02] MEDS: METOPROLOL SUCCINATE 50 MG TAB XL PO SCH ×3 (00:49→23:44)
[2017-12-02] MEDS: INSULIN DETEMIR 100 UNIT/ML PEN SQ SCH ×3 (00:50→23:57)
[2017-12-02] MEDS: INSULIN REGULAR, HUMAN 100 UNIT/1 ML 3ML VIAL SQ SCH ×4 (07:30→20:09)
[2017-12-02] MEDS: TERAZOSIN HCL 5 MG CAP PO SCH (08:33)
[2017-12-02] MEDS: VALSARTAN 160 MG TAB PO SCH (08:33)
[2017-12-02] MEDS: ASPIRIN 81 MG ENTERIC COATED PO SCH (08:33)
[2017-12-02] MEDS: TAMSULOSIN HCL 0.4 MG CAP PO SCH (08:33)
[2017-12-02] MEDS: SERTRALINE HCL 100 MG TAB PO SCH (08:34)
[2017-12-02] MEDS: NIFEDIPINE CR 30 MG TAB PO SCH ×2 (08:34→16:58)
[2017-12-02] MEDS: FAMOTIDINE 20 MG TAB PO SCH ×2 (08:34→20:48)
[2017-12-02] MEDS: ONDANSETRON HCL 4 MG ORAL DISINTEGRATING TAB PO PRN (08:35)
[2017-12-02] MEDS: MORPHINE SULFATE 2 MG/ML SYR IV PRN (08:37)
[2017-12-02] MEDS: HYDROCODONE/APAP 10MG-325MG TAB PO PRN (10:29)
[2017-12-02] MEDS: HYDRALAZINE HCL 25 MG TAB PO SCH ×3 (11:07→20:07)
[2017-12-02] MEDS ORDERED: CLONIDINE HCL 0.2 MG/24 HR 1 EA PATCH TOP SCH (12:00)
[2017-12-02] MEDS ORDERED: CLONIDINE HCL 0.1 MG/24 HR 1 EA PATCH TOP SCH (12:15)
--- NOTE | 2017-12-02 12:48 | Diagnostic Imaging Report ---
History:History of stroke, headaches. Comparison studies:None Technique: Axial images were obtained from the skull base to the vertex. Coronal and sagittal images reconstructed from the axial data. Intravenous contrast: None Findings: Scalp/skull: No abnormalities. Extra-axial spaces: Posterior fossa subarachnoid blood at the anterior and left lateral foramen magnum, premedullary, prepontine and left CPA cisterns. No midline shift or herniation Brain sulci: Mildly prominent. Ventricles: Mild compensatory dilatation. No hydrocephalus. Parenchyma: Few small hypodensities in the supratentorial white matter are small vessel ischemic changes. Chronic bilateral thalami small lacunar infarcts. No masses, hemorrhage, acute or chronic cortical vascular insults. Sellar/suprasellar region: No abnormalities. Craniocervical junction: Patent foramen magnum. No Chiari one malformation. Incidental findings: Atherosclerotic calcifications in the carotid siphons . Impression: Anterior and left posterior fossa subarachnoid hemorrhage, recommend further evaluation with head CTA Chronic findings: 1. Mild generalized volume loss. 2. Mild supratentorial white matter small vessel ischemic changes. The above finding was reported and acknowledged by STACEY Reyes at 12:39 PM 12/02/2017 Signed by: DR Hermes Dozier M.D. on 12/02/2017 12:44 PM
--- NOTE | 2017-12-02 13:21 | Cardiology Report ---
DATE OF STUDY: December 01, 2017 LEXISCAN NUCLEAR STRESS TEST INDICATIONS: Chest pain. DESCRIPTION OF PROCEDURE: After informed consent, the patient was brought to the stress lab. He was given 10 mCi of technetium 99 Myoview, and myocardial perfusion SPECT images were obtained in the horizontal long and short axis and vertical long axis. Subsequently, the patient was given 0.4 mg Lexiscan over 10 seconds. Patient was given 33 mCi of technetium 99 Myoview, and myocardial perfusion SPECT images were obtained in horizontal long and short axis and vertical long axis. Gated images were also obtained. Patient tolerated the procedure without any complications. REPORT: Baseline EKG showed sinus rhythm at 79 beats per minute, normal axis, normal intervals. T-wave inversions in I, aVL and V6. LVH. PARAMETERS 1. Resting heart rate is 79 beats per minute. 2. Maximal heart rate is 86 beats per minute. 3. Resting blood pressure is 201/89 and mmHg. 4. Maximum blood pressure is 201/89 mmHg. REASON FOR TERMINATION: End point attained. INTERPRETATION 1. Negative for chest pain. 2. Negative for arrhythmia. 3. Blood pressure response consistent with Lexiscan. 4. No significant ST-T changes seen during Lexiscan infusion compared to baseline. 5. Analysis of SPECT images reveals patchy radioisotope uptake in the inferior wall without any significant reversible or fixed perfusion defects. CONCLUSIONS 1. No evidence significant ischemia or infarction on this study. 2. No wall motion abnormalities. 3. Overall ejection fraction is 53%. Job#: [id number]
[2017-12-02] MEDS ORDERED: DILTIAZEM HCL 100 ML IV SCH (13:30)
[2017-12-02] MEDS ORDERED: DILTIAZEM HCL IV SOLN 125 MG in DEXTROSE 5% 100ML 100 ML IV PRN (13:45)
--- NOTE | 2017-12-02 14:09 | Diagnostic Imaging Report ---
History:Posterior fossa subarachnoid hemorrhage, Comparison studies:None Technique: Axial images were obtained from the skull base to the vertex. Coronal and sagittal images reconstructed from the axial data. Intravenous contrast: 100 cc of Omnipaque 300. Findings: Right internal carotid artery: Patent. Nonstenotic atherosclerotic calcifications at the carotid siphon. Left internal carotid artery: Patent. Nonstenotic atherosclerotic calcifications at the carotid siphon. Patent bilateral MCAs and ACAs Right vertebral artery: Patent. No abnormalities. Left vertebral artery: Patent. More than, proximal 69% % 2 cm segment narrowing of the proximal V4 (intracranial vertebral artery), distal to posterior inferior cerebellar artery takeoff . Basilar artery: Patent. 50-60% narrowing distal to the posterior-inferior cerebellar artery takeoff. Posterior cerebral arteries: Patent. No abnormalities. Bilateral origin. Anatomical variants: Acom: Patent . Pcoms: Patent. Vertebral arteries: Prominent left . Again seen is stable central and left posterior fossa subarachnoid hemorrhage. Trace of subarachnoid hemorrhage is also seen at the medial occipital gyri. IMPRESSION: 1. Vasospasm of the bilateral intracranial vertebral arteries mid segment, without evidence of aneurysm or vascular malformation. No other acute vascular abnormality seen. 2. MRI of the brain could be helpful for further evaluation. Signed by: DR Hermes Dozier M.D. on 12/02/2017 2:05 PM
[2017-12-02] MEDS ORDERED: SODIUM CHLORIDE 0.9% 50ML 50 ML ONE (15:21)
[2017-12-02] MEDS ORDERED: IOPAMIDOL 370 MG/ML 200 ML INFUS..BTL INJ ONE (15:22)
[2017-12-02] MEDS: NICARDIPINE 20MG/200ML PREMIX 200 ML IV PRN ×2 (18:30→22:37)
[2017-12-02] MEDS: AMITRIPTYLINE HCL 25 MG TAB PO SCH (20:04)
[2017-12-02] MEDS: ATORVASTATIN 20 MG TAB PO SCH (20:05)
[2017-12-03] VITALS (107 sets, daily range): BP systolic 108–181; BP diastolic 54–97
--- NOTE | 2017-12-03 00:14 | Consultation ---
DATE OF CONSULTATION: December 02, 2017 NEUROLOGY CONSULTATION HISTORY OF PRESENT ILLNESS: Mr. Young is a 62-year-old right hand dominant man with past medical history significant for hypertension; hyperlipidemia; diabetes mellitus type 2; and end-stage renal disease, on hemodialysis, Tuesdays, , and Saturdays; who presented to the emergency center at [facility] on November 30, 2017 with headache, blurred vision, nausea, and vomiting. While in the emergency center, the patient's blood pressure was noted to be markedly elevated. He was admitted to [facility] for further evaluation and treatment of hypertensive urgency. On December 02, 2017, a CT of the brain without contrast for evaluation of the patient's persistent headache. The CT of the brain without contrast demonstrated a posterior fossa subarachnoid hemorrhage at the anterior and left lateral foramen magnum, premedullary, prepontine, and left CPA cisterns. A neurology consultation was ordered for further evaluation and treatment. The patient did experience a fall 5 days prior to this consultation and 3 days prior to admission. The patient does not report hitting his head during this fall. However, 4 days prior to this consultation and 2 days prior to admission, the patient stumbled while ambulating with his walker, fell forward, and hit his head on a tile floor. There was no loss of consciousness, but the patient reports feeling dazed after the fall. Nearly immediately after the fall, the patient began to experience a headache, which he describes as follows: The pain is located over the occiput and radiates along the entire spine. The pain is described as sharp. Associated with the headache are blurred vision, nausea, and vomiting. The patient does not report a prior history of headaches. The patient does take aspirin 81 mg by mouth daily. He does report compliance with this medication. REVIEW OF SYSTEMS: Nausea, vomiting, blurred vision, neck, midback, and low back pain, headache. PAST MEDICAL HISTORY: Hypertension; hyperlipidemia; diabetes mellitus type 2; osteoarthritis; end-stage renal disease, on hemodialysis, Tuesdays, , and Saturdays; GERD; mixed depression/anxiety disorder; and benign prostatic hypertrophy. PAST SURGICAL HISTORY: Right arm AV fistula placement, bilateral cataract surgery. PAST HOSPITALIZATIONS: For surgeries and procedures as listed. Multiple hospitalizations for hypertension and renal failure. FAMILY HISTORY: The patient's paternal and maternal grandparents are . Their medical histories are unknown. The patient's father is , he had diabetes mellitus. The patient's mother is , she had coronary artery disease. Mr. Young has 4 siblings. Multiple other siblings have high blood pressure, diabetes mellitus, or thyroid disease. The patient has 4 children, 2 of his children have high cholesterol and diabetes mellitus. SOCIAL HISTORY: The patient is . He attended school through the 11th grade. Mr. Young is on disability for end-stage renal disease. The patient does not report current or prior tobacco, alcohol, or recreational drug use. HOME MEDICATIONS: 1. Amitriptyline 25 mg by mouth at bedtime. 2. Norvasc 10 mg by mouth daily. 3. Aspirin 81 mg by mouth daily. 4. Atorvastatin 20 mg by mouth at bedtime. 5. Lasix 40 mg by mouth every 12 hours. 6. Hydralazine 50 mg by mouth twice daily. 7. Lantus 32 units subcutaneously every 12 hours. 8. Metoprolol 100 mg by mouth every 12 hours. 9. Nifedipine 90 mg by mouth daily. 10. Novolin N 5 units subcutaneously before meals. 11. Zofran 4 mg by mouth every 6 hours as needed for nausea. 12. Sertraline 100 mg by mouth daily. 13. Tamsulosin 0.4 mg by mouth daily. 14. Terazosin 5 mg by mouth daily. 15. Valsartan 320 mg by mouth daily. ALLERGIES: THE PATIENT IS ALLERGIC TO BACTRIM. THERE ARE NO KNOWN FOOD ALLERGIES. NO KNOWN ALLERGIES TO LATEX. NO KNOWN ALLERGIES TO IODINE OR OTHER CONTRAST MATERIALS. PHYSICAL EXAMINATION: VITAL SIGNS: Height 62 inches, weight 136.13 pounds, BMI 24.9 kg/sq m. Blood pressure 142/73 mmHg, pulse 63 beats per minute, respiratory rate 18 breaths per minute, oxygen saturation 98% on room air. GENERAL: The patient is awake and alert, does not appear distressed. HEENT: Normocephalic, atraumatic. Pupils are surgical. Moist mucous membranes. NECK: Supple. No appreciable thyromegaly. No appreciable carotid bruits. CARDIOVASCULAR: S1, S2, regular rate and rhythm. No murmurs, rubs, or gallops. RESPIRATORY: Clear to auscultation bilaterally. No wheezes, rhonchi, or rales. EXTREMITIES: The skin is warm and dry. No clubbing, cyanosis, or edema. The posterior tibial and dorsalis pedis pulses are 2+ and symmetric. SKIN: No rashes or lesions. NEUROLOGIC EXAMINATION: MEMORY/ATTENTION: The patient is awake and alert, oriented to person, place, time, and situation. CRANIAL NERVES: Cranial nerve I - not tested. Cranial nerves II, III, IV, and - Pupils are surgical. Extraocular movements intact, no nystagmus. Cranial nerve V - Sensation to light touch and pinprick is intact in the bilateral V1 through V3 distributions. Strength of the temporalis and masseter muscles is within normal limits. Cranial nerve VII - The face is symmetric, as are all facial movements. Strength is within normal limits. Cranial nerve VIII - Hearing is intact to finger rub bilaterally. Cranial nerve IX, X - The soft palate elevates equally and symmetrically. Cranial nerve XI - Normal strength of the bilateral sternocleidomastoid and trapezius muscles. Cranial nerve XII - The tongue protrudes midline and moves symmetrically from side to side. STRENGTH: Bulk is normal, and strength is 5/5 in the bilateral deltoids, biceps, triceps, wrist flexors and extensors, finger flexors and extensors, intrinsic hand muscles, hip flexors, knee flexors and extensors, ankle dorsiflexion and plantarflexion, and intrinsic foot muscles. Tone is normal. DTRs: Deep tendon reflexes are 2+ and symmetric at the triceps, biceps, brachioradialis, patellas, and Achilles'. Plantar responses are flexor bilaterally. Absent clonus. SENSATION: Sensation is intact to light touch and pinprick in both arms and both legs. CEREBELLAR: Wbembs-yhjf-avfmuh and heel-mack maneuvers are intact without dysmetria or other impairment. Rapid alternating movements are intact. GAIT: Deferred. SPEECH: Spontaneous speech is normal without appreciable dysarthria or aphasia. Repetition is intact. INVOLUNTARY MOVEMENTS: None. PRONATOR DRIFT: None. LABORATORY DATA: Sodium 141, potassium 5.2, chloride 100, carbon dioxide 25, anion gap 21.2. BUN 54, creatinine 6.55, estimated GFR 9, BUN to creatinine ratio 8, glucose 166, calcium 8.7. Liver function tests drawn on November 30, 2017 are as follows: Total bilirubin 0.6, AST 14, ALT 12, alkaline phosphatase 108, total protein 7.6, albumin 4.0, globulin 3.6, albumin to globulin ratio 1.1. Creatine kinase 70, 55, 55, 58. CK-MB 2.20, 2.00, 2.00, 1.50. Troponin I 0.016, 0.017, 0.042, 0.047. B natriuretic peptide 1793.0. Total cholesterol 123, triglycerides 98, LDL cholesterol 63, HDL cholesterol 40. Fingerstick blood glucoses over the past 24 hours have ranged from 137 to 206. CBC with differential and platelets reveals a white blood cell count of 6.14 with 76.3% neutrophils, 16.1% lymphocytes, 6.4% monocytes, 0.0% eosinophils, 0.2% basophils. The hemoglobin and hematocrit are 9.5 and 29.1, respectively. The platelet count is 141,000. PT 13.3, INR 1.09, PTT 33.9. Hepatitis B surface antigen negative. Hepatitis B antibody 7.4, hepatitis B core total antibody negative, hepatitis B core IgM antibody negative. DIAGNOSTIC STUDIES: 1. Chest x-ray, November 30, 2017: No acute radiographic abnormality. 2. CTA of the chest and thorax, November 30, 2017: No evidence of aortic dissection. Multiple healing left lateral rib fractures. Small left pleural effusion. 3. CT of the brain without contrast, December 02, 2017: Posterior fossa subarachnoid blood at the anterior and left lateral foramen magnum, premedullary, prepontine, and left CPA cisterns. No midline shift or herniation. Mild generalized volume loss. Mild chronic small-vessel ischemic disease. 4. CTA of the brain, December 02, 2017: Vasospasm of the bilateral intracranial vertebral arteries mid segment, without evidence of aneurysm or vascular malformation. No other acute vascular abnormality is seen. ASSESSMENT AND PLAN: Mr. Young is a 62-year-old right hand dominant man with past medical history significant for hypertension, hyperlipidemia, diabetes mellitus, and end-stage renal disease, on hemodialysis, admitted to [facility] on November 30, 2017 with hypertensive urgency. A CT of the brain without contrast performed on December 02, 2017 revealed a subarachnoid hemorrhage, probably traumatic. A CTA of the brain and neck demonstrates vasospasm of the vertebral arteries, mid segment. The patient's neurological examination is nonfocal. The patient's laboratory data and diagnostic studies have been reviewed. As stated above, Mr. Young has a subarachnoid hemorrhage, probably traumatic. The presence of subarachnoid blood has led to vasospasm of the vertebral arteries, mid segment. RECOMMENDATIONS: As follows: 1. Aspirin 81 mg by mouth daily was discontinued. The patient is not to receive any antiplatelet or anticoagulant medications. 2. The patient's goal blood pressure is less than 150/90 mmHg. At this time, his blood pressure is below the recommended goal. Continue oral antihypertensive medications. An order for Cardene infusion has been placed if needed. 3. The CTA of the brain did demonstrate vasospasm of the bilateral vertebral arteries, mid segment. Vasospasm can cause encephalopathy or focal neurological deficits due to ischemia. Vasospasm is usually treated with oral nimodipine, which is not available. Vasospasm may be treated with Cardene or verapamil. An order for a Cardene infusion, if needed, has been placed. Consider adding verapamil to the patient's oral antihypertensive medications. 4. Avoid treatment with sedative/hypnotic medications. Use pain medications sparingly. Treatment with any of these types of medications may alter the patient's sensorium. It would be difficult to distinguish between a change in the patient's neurological status or medication effect. This could expose the patient to unnecessary diagnostic studies. 5. The patient is not to be treated with tramadol. The presence of subarachnoid blood predisposes the patient towards having seizures. Tramadol is known to lower the seizure threshold. 6. Defer treatment of the remaining medical comorbidities to the primary and other services. Thank you for this consultation. I will continue to follow this patient while he remains in the hospital. Time spent 70 minutes. Job#: [id number] DR MELGAR
[2017-12-03] MEDS: NICARDIPINE 20MG/200ML PREMIX 200 ML IV PRN ×4 (02:30→22:56)
[2017-12-03 05:57] LABS: BASOPHILS % 0.4 % (0.0-1.0); EOSINOPHILS % 0.1 % (0.0-6.0); HEMATOCRIT 30.8 % (38.2-49.6); HEMOGLOBIN 9.9 g/dL (14.0-18.0); LYMPHOCYTES # (AUTO) 0.8 (1.0-3.2); LYMPHOCYTES % 11.8 % (18.0-39.1); MEAN CORPUSCULAR HEMOGLOBIN 28.8 pg (28-32); MEAN CORPUSCULAR HGB CONC 32.1 g/dL (31-35); MEAN CORPUSCULAR VOLUME 89.5 fL (81-99); MONOCYTES # (AUTO) 0.4 (0.2-0.8); MONOCYTES % 5.8 % (4.4-11.3); NEUTROPHILS # (AUTO) 5.8 (2.1-6.9); NEUTROPHILS % 80.9 % (38.7-80.0); PLATELET COUNT 166 x10e3/uL (140-360); RED BLOOD COUNT 3.44 x10e6/uL (4.3-5.7); RED CELL DISTRIBUTION WIDTH 14.5 % (11.7-14.4)
[2017-12-03 06:16] LABS: ANION GAP 20.6 mmol/L (8-16); CALCIUM 7.9 mg/dL (8.4-10.2); CREATININE, SERUM 6.63 mg/dL (0.72-1.25); POTASSIUM 5.6 mmol/L (3.5-5.1)
[2017-12-03] MEDS: INSULIN REGULAR, HUMAN 100 UNIT/1 ML 3ML VIAL SQ SCH ×4 (07:59→20:27)
[2017-12-03] MEDS: HYDRALAZINE HCL 25 MG TAB PO SCH ×3 (08:02→20:32)
[2017-12-03] MEDS: NIFEDIPINE CR 30 MG TAB PO SCH ×2 (08:03→16:13)
[2017-12-03] MEDS: TERAZOSIN HCL 5 MG CAP PO SCH (08:03)
[2017-12-03] MEDS: TAMSULOSIN HCL 0.4 MG CAP PO SCH (08:03)
[2017-12-03] MEDS: VALSARTAN 160 MG TAB PO SCH (08:03)
[2017-12-03] MEDS: SERTRALINE HCL 100 MG TAB PO SCH (08:03)
[2017-12-03] MEDS: FAMOTIDINE 20 MG TAB PO SCH ×2 (08:03→20:32)
[2017-12-03] MEDS ORDERED: SOD POLYSTYRENE SULFONATE SUSP 15 GM/60 ML BTL PO ONE (09:00)
[2017-12-03] MEDS ORDERED: SODIUM BICARBONATE 8.4% INJ 50 ML SYR IV ONE (09:00)
[2017-12-03] MEDS: ONDANSETRON HCL INJ 2 MG/ML VIAL IV PRN ×2 (11:45→21:39)
[2017-12-03] MEDS: MORPHINE SULFATE 2 MG/ML SYR IV PRN ×2 (11:49→21:38)
[2017-12-03] MEDS: METOPROLOL SUCCINATE 50 MG TAB XL PO SCH (12:30)
[2017-12-03] MEDS: FUROSEMIDE 40 MG TAB PO SCH ×2 (12:30→12:50)
[2017-12-03] MEDS: INSULIN DETEMIR 100 UNIT/ML PEN SQ SCH (12:33)
[2017-12-03] MEDS: HYDROCODONE/APAP 10MG-325MG TAB PO PRN (14:39)
[2017-12-03] MEDS: HYDRALAZINE HCL 20 MG/ML VIAL IV PRN (14:48)
[2017-12-03] MEDS: ATORVASTATIN 20 MG TAB PO SCH (20:32)
[2017-12-03] MEDS: AMITRIPTYLINE HCL 25 MG TAB PO SCH (20:32)
[2017-12-03] MEDS ORDERED: ONDANSETRON HCL INJ 2 MG/ML VIAL ONE (21:36)
[2017-12-04] VITALS (94 sets, daily range): BP systolic 110–176; BP diastolic 60–100
[2017-12-04] MEDS: INSULIN DETEMIR 100 UNIT/ML PEN SQ SCH ×3 (00:16→20:29)
[2017-12-04] MEDS: FUROSEMIDE 40 MG TAB PO SCH (00:19)
[2017-12-04] MEDS: METOPROLOL SUCCINATE 50 MG TAB XL PO SCH ×3 (00:19→20:29)
[2017-12-04] MEDS: ONDANSETRON HCL 4 MG ORAL DISINTEGRATING TAB PO PRN ×3 (04:29→21:27)
[2017-12-04] MEDS: HYDROCODONE/APAP 10MG-325MG TAB PO PRN (04:56)
[2017-12-04] MEDS: NICARDIPINE 20MG/200ML PREMIX 200 ML IV PRN ×2 (07:30→16:26)
[2017-12-04] MEDS: INSULIN REGULAR, HUMAN 100 UNIT/1 ML 3ML VIAL SQ SCH ×4 (07:30→20:24)
[2017-12-04] MEDS: HYDRALAZINE HCL 20 MG/ML VIAL IV PRN ×2 (07:39→10:30)
[2017-12-04] MEDS: FAMOTIDINE 20 MG TAB PO SCH ×2 (08:00→20:29)
[2017-12-04] MEDS: SERTRALINE HCL 100 MG TAB PO SCH (08:00)
[2017-12-04] MEDS: HYDRALAZINE HCL 25 MG TAB PO SCH ×3 (08:02→20:23)
[2017-12-04] MEDS: TERAZOSIN HCL 5 MG CAP PO SCH (08:03)
[2017-12-04] MEDS: TAMSULOSIN HCL 0.4 MG CAP PO SCH (08:03)
[2017-12-04] MEDS: VALSARTAN 160 MG TAB PO SCH (08:03)
[2017-12-04] MEDS: NIFEDIPINE CR 30 MG TAB PO SCH ×3 (08:03→17:00)
[2017-12-04] MEDS ORDERED: DOXAZOSIN MESYLATE 2 MG TAB PO SCH (10:45)
[2017-12-04] MEDS ORDERED: ISOSORBIDE MONONITRATE 30 MG TAB CR PO SCH (11:30)
[2017-12-04] MEDS: MINOXIDIL 2.5 MG TAB PO SCH ×3 (11:31→17:00)
[2017-12-04] MEDS ORDERED: QUETIAPINE FUMARATE 25 MG TAB PO PRN (12:00)
[2017-12-04] MEDS: MORPHINE SULFATE 2 MG/ML SYR IV PRN (13:07)
[2017-12-04] MEDS ORDERED: CLONIDINE HCL 0.2 MG/24 HR 1 EA PATCH TOP SCH (16:00)
[2017-12-04] MEDS ORDERED: MORPHINE SULFATE 2 MG/ML SYR IV PRN (18:30)
[2017-12-04 18:40] LABS: ABG HCO3 31 mmol/L (23-28); ABG PCO2 41 mmHg (41-51); ABG PH 7.49 (7.31-7.41); ABG PO2 114 mmHg (80-105)
--- NOTE | 2017-12-04 19:59 | Diagnostic Imaging Report ---
History:Altered mental status Comparison studies:Head CT from 12/10/2017 x 2 Technique: Axial images were obtained from the skull base to the vertex. Coronal and sagittal images reconstructed from the axial data. Intravenous contrast: None Findings: Scalp/skull: No abnormalities. Extra-axial spaces: No masses. No fluid collections. Brain sulci: Focal acute bud hemorrhage is seen in the left cingulate sulcus subarachnoid, several medial occipital sulci and in the prepontine and premedullary cisterns. Ventricles: Acute blood is present in the occipital horn of the right lateral ventricle. The ventricles are mildly prominent but there is no hydrocephalus. Parenchyma: No abnormal densities. . No masses, hemorrhage, acute or chronic cortical vascular insults. Sellar/suprasellar region: No abnormalities. Craniocervical junction: Patent foramen magnum. No Chiari one malformation. Incidental findings: Atherosclerotic calcifications in the carotid siphons . Impression: New acute blood in the right occipital horn. Otherwise, no significant changes when compared to the precontrast head CT on 12/04/2017 Persistent acute subarachnoid hemorrhage (left cingulate sulcus, medial occipital sulci, prepontine and premedullary cisterns). Signed by: Dr. Jitendra Singh M.D. on 12/04/2017 7:56 PM
[2017-12-04] MEDS: ATORVASTATIN 20 MG TAB PO SCH (20:23)
[2017-12-04] MEDS: AMITRIPTYLINE HCL 25 MG TAB PO SCH (20:23)
[2017-12-04] MEDS ORDERED: DEXTROSE 10% 1,000 ML IV SCH (20:30)
[2017-12-04] MEDS ORDERED: METOPROLOL TARTRATE INJ 1 MG/ML VIAL IV PRN (20:30)
--- NOTE | 2017-12-04 21:33 | Diagnostic Imaging Report ---
History:Rule out stroke Comparison studies:Head CT: 12/02/2017 and 12/04/2017 at 1839 hours Technique: Axial images were obtained from the skull base to the vertex. Coronal and sagittal images reconstructed from the axial data. Intravenous contrast: None Findings: See impression Impression: 1. No changes when compared to the head CT on 12/04/2017 at 1839 hours 2. Specifically, no acute vascular insults. Persistent findings: 1. Acute blood in the occipital horns. Prominent ventricles but no acute hydrocephalus 2. Acute subarachnoid hemorrhage (left cingulate sulcus, medial occipital sulci, prepontine and premedullary cisterns). Signed by: Dr. Jitendra Singh M.D. on 12/04/2017 9:29 PM
== END 2017-12-05 00:14 | disposition short-term general hospital (02) | DRG 85 ==
LOC: ER 06:44 → ERHOLD 10:18 → IMCU 10:23 → OBSVTOIN 12-02 09:36 → ICU 12-02 15:29
PROVIDERS: ADMIT Internal Medicine; ATTEND Internal Medicine
PROC: 5A1D70Z Performance of Urinary Filtration, Intermittent, Less than 6 Hours Per Day (ICD-10-PCS; principal; 2017-12-03)
DX: S06.6X0A Traumatic subarachnoid hemorrhage without loss of consciousness, initial encounter (principal); N18.6 End stage renal disease; I12.0 Hypertensive chronic kidney disease with stage 5 chronic kidney disease or end stage renal disease; I16.0 Hypertensive urgency; E11.22 Type 2 diabetes mellitus with diabetic chronic kidney disease; R58 Hemorrhage, not elsewhere classified; E78.5 Hyperlipidemia, unspecified; Z99.2 Dependence on renal dialysis; R07.89 Other chest pain; D63.8 Anemia in other chronic diseases classified elsewhere; Z86.73 Personal history of transient ischemic attack (TIA), and cerebral infarction without residual deficits; E87.6 Hypokalemia; R51 Headache; W01.198A Fall on same level from slipping, tripping and stumbling with subsequent striking against other object, initial encounter; Z91.81 History of falling; Y93.01 Activity, walking, marching and hiking; M54.2 Cervicalgia
CPT/HCPCS: 36415; 36600; 70450; 70496; 71045; 71275; 78452; 80048; 80053; 80061; 82550; 82553; 82805; 82948; 83880; 84484; 85025; 85610; 85730; 86704; 86705; 86706; 87340; 90962; 93005; 93017; 93306; 96372; 97139; 99284; A9502; G0378; J0360; J1170; J2270; J2405; J7030; J7799; Q9967